=== PATIENT | female | born 1985 | race Caucasian/White ===

== ENCOUNTER 2017-05-29 13:24 | Inpatient (IN) | payer OTHER ==
[~2017-05-29] VITALS: Ht 154.9 cm; Wt 68.0 kg
[2017-05-29 13:45] VITALS: BP 125/64
[2017-05-29] MEDS: RINGERS SOLUTION,LACTATED 1,000 ML IV SCH ×2 (16:24→18:40)
[2017-05-29] MEDS ORDERED: RINGERS SOLUTION,LACTATED 1,000 ML IV ONE ×2 (16:32→21:10)
[2017-05-29] MEDS ORDERED: RINGERS SOLUTION,LACTATED 1,000 ML IV PRN (16:32)
[2017-05-29] MEDS ORDERED: FentaNYL CITRATE-PF 100 MCG/2 ML VIAL IVP PRN (16:45)
[2017-05-29] MEDS ORDERED: METOCLOPRAMIDE HCL 5 MG/ML 2 ML VIAL IVP PRN (16:45)
[2017-05-29] MEDS ORDERED: CITRIC ACID/SODIUM CITRATE 30 ML SOLUTION UDCUP PO PRN (16:45)
[2017-05-29 17:29] LABS: BASOPHILS % (AUTO) 0.4 % (0.0-2.0); EOSINOPHILS % (AUTO) 0.2 % (1.0-6.0); HEMOGLOBIN 13.3 g/dL (12.0-16.0); LYMPHOCYTES # (AUTO) 2.1 K/uL (1.0-4.8); LYMPHOCYTES % (AUTO) 13.4 % (22.0-44.0); MEAN CORPUSCULAR HGB CONC 34.2 G/dL (31.0-37.0); MEAN CORPUSCULAR VOLUME 94 fL (80-100); MONOCYTES # (AUTO) 0.7 K/uL (0.1-1.0); MONOCYTES % (AUTO) 4.9 % (2.0-9.0); NEUTROPHILS # (AUTO) 12.5 K/uL (1.8-7.7); NEUTROPHILS % (AUTO) 81.1 % (40.0-70.0); PLATELET COUNT (AUTO)-OB 201 K/uL (150-450); RED BLOOD CELL COUNT(AUTO) 4.17 MIL/uL (4.00-5.20); RED CELL DISTRIBUTION WIDTH 13.6 % (11.5-14.5)
[2017-05-29] MEDS ORDERED: BUPIVACAINE HCL/PF 0.5% 10 ML VIAL ONE (17:35)
[2017-05-29] MEDS ORDERED: OXYTOCIN 30 UNITS/LACT RINGERS 500 ML IV ONE ×2 (18:47→18:48)
[2017-05-29] MEDS ORDERED: OXYGEN THERAPY IH SCH (20:00)
[2017-05-29] MEDS ORDERED: ROPIVACAINE HCL 0.2% 100 ML ED ONE (20:07)
[2017-05-29] MEDS ORDERED: LIDOCAINE HCL/PF 1% 30 ML VIAL INJ PRN (21:00)
[2017-05-29] MEDS ORDERED: GLYCERIN/WITCH HAZEL LEAF 40 PADS JAR TP PRN (21:15)
[2017-05-29] MEDS ORDERED: MEASLES/MUMPS/RUBELLA VACCINE, LIVE 0.5 ML/VIAL SQ ONE (21:15)
[2017-05-29] MEDS ORDERED: OxyCODONE HCL/ACETAMINOPHEN 5-325 MG TABLET PO PRN (21:15)
[2017-05-29] MEDS ORDERED: LANOLIN 7 GM OINTMENT TP PRN (21:15)
[2017-05-29] MEDS ORDERED: BENZOCAINE 20%/MENTHOL 56 GM SPRAY CANISTER TP PRN (21:15)
[2017-05-29] MEDS: IBUPROFEN 600 MG TABLET PO PRN (21:30)
[2017-05-30] MEDS: IBUPROFEN 600 MG TABLET PO PRN (05:59)
[2017-05-30] MEDS: MAGNESIUM HYDROXIDE SUSPENSION 30 ML UDCUP PO SCH ×2 (09:11→21:04)
[2017-05-30] MEDS ORDERED: IBUP-2070 PO (14:01)
[2017-05-30] MEDS ORDERED: DSS100 PO (14:03)
[2017-05-30] MEDS: OxyCODONE HCL/ACETAMINOPHEN 5-325 MG TABLET PO PRN ×2 (19:46→21:15)
== END 2017-05-30 21:15 | disposition home or self-care (01) | DRG 775 ==
LOC: 4S 13:24 → OBSVTOIN 13:24
PROVIDERS: ADMIT Obstetrics & Gynecology; ATTEND Obstetrics & Gynecology
PROC: 10E0XZZ Delivery of Products of Conception, External Approach (ICD-10-PCS; principal; 2017-05-29)
PROC: 0HQ9XZZ Repair Perineum Skin, External Approach (ICD-10-PCS; 2017-05-29)
DX: O70.0 First degree perineal laceration during delivery (principal); Z37.0 Single live birth; Z3A.38 38 weeks gestation of pregnancy
CPT/HCPCS: J2590; J2795; J3010; J3490; J7120